=== PATIENT | female | born 1995 | race African-American/Black ===

== ENCOUNTER 2018-07-16 16:15 | Emergency (ER) | payer OTHER ==
[2018-07-16 16:27] VITALS: BP 102/49; PULSE 83; TEMP 98.6; BMI 23.7
--- NOTE | 2018-07-16 16:29 | PDOC ---
History of Present Illness - General History Source: Patient Exam Limitations: No Limitations <Melva Fisher - Last Filed: 07/16/18 17:10> - General History Source: Patient Exam Limitations: No Limitations - History of Present Illness Initial Comments: 07/16/18 16:41 The patient is a 22 year old female, with no significant PMH who presents to the emergency department complaining of white patches to the back of throat that began 2 days ago. The patient is endorsing mild pain when swallowing. Patient is also complaining of mild ear pain and states the "back of the neck hurts." Patient has not taken any medications for her symptoms. Denies any cough or recent illness. The patient denies chest pain, shortness of breath, headache and dizziness. Denies fever, chills, nausea, vomit, diarrhea and constipation. Denies dysuria, frequency, urgency and hematuria. Allergies: fruits Past surgical history: None reported. Social history: No reported alcohol, drug or cigarette use. <Maryjo Kay - Last Filed: 07/16/18 17:19> - General Chief Complaint: Sore Throat Stated Complaint: SORE THROAT Time Seen by Provider: 07/16/18 16:19 Past History - Past Medical History COPD: No Other medical history: DENIES - Suicide/Smoking/Psychosocial Hx Smoking History: Never smoked Have you smoked in the past 12 months: No Information on smoking cessation initiated: No Hx Alcohol Use: No Drug/Substance Use Hx: No Substance Use Type: None <Melva Fisher - Last Filed: 07/16/18 17:10> <Maryjo Kay - Last Filed: 07/16/18 17:19> - Past Medical History Allergies/Adverse Reactions: Allergies Allergy/AdvReac Type Severity Reaction Status Date / Time peanut Allergy Intermediate Hives Verified 07/16/18 16:16 FRUITS Allergy Intermediate Hives Uncoded 07/16/18 16:16 Home Medications: Ambulatory Orders NK [No Known Home Medication] 07/16/18 Review of Systems - Review of Systems Able to Perform ROS?: Yes Comments:: 07/16/18 16:39 ADULT ROS GENERAL/CONSTITUTIONAL: No fever or chills. No weakness. HEAD, EYES, EARS, NOSE AND THROAT: No change in vision. No ear pain or discharge. (+) White patch to the back of the throat. (+) sore throat. CARDIOVASCULAR: No chest pain or shortness of breath. RESPIRATORY: No cough, wheezing, or hemoptysis. GASTROINTESTINAL: No nausea, vomiting, diarrhea or constipation. GENITOURINARY: No dysuria, frequency, or change in urination. MUSCULOSKELETAL: No joint or muscle swelling or pain. No neck or back pain. SKIN: No rash NEUROLOGIC: No headache, vertigo, loss of consciousness, or change in strength/ sensation. ENDOCRINE: No increased thirst. No abnormal weight change. HEMATOLOGIC/LYMPHATIC: No anemia, easy bleeding, or history of blood clots. ALLERGIC/IMMUNOLOGIC: No hives or skin allergy. <Maryjo Kay - Last Filed: 07/16/18 17:19> *Physical Exam - Vital Signs Last Vital Signs Temp Pulse Resp BP Pulse Ox 98.6 F 83 16 102/49 L 100 07/16/18 16:15 07/16/18 16:15 07/16/18 16:15 07/16/18 16:15 07/16/18 16:15 <Melva Fisher - Last Filed: 07/16/18 17:10> - Vital Signs Last Vital Signs Temp Pulse Resp BP Pulse Ox 98.6 F 83 16 102/49 L 100 07/16/18 16:15 07/16/18 16:15 07/16/18 16:15 07/16/18 16:15 07/16/18 16:15 - Physical Exam Comments: 07/16/18 16:39 ADULT PE GENERAL: The patient is in no acute distress. HEAD: Normal with no signs of trauma. EYES: PERRLA, EOMI, sclera anicteric, conjunctiva clear. ENT: Ears normal, nares patent. Bilateral lateral tonsillar edema. 1-2 faint white patches on the posterior oropharynx. No exudates. Cervical lymphadenopathy. No drooling. No stridor. No vocal changes. Moist mucous membranes. NECK: Normal range of motion, supple without lymphadenopathy, JVD, or masses. LUNGS: Breath sounds equal, clear to auscultation bilaterally. No wheezes, and no crackles. HEART:Regular rate and rhythm, normal S1 and S2 without murmur, rub or gallop. ABDOMEN: Soft, nontender, normoactive bowel sounds. No guarding, no rebound. No masses palpable. EXTREMITIES: Normal range of motion, no edema. No clubbing or cyanosis. No erythema, or tenderness. NEUROLOGICAL: Cranial nerves II through XII grossly intact. Normal speech. No focal neurological deficits. MUSCULOSKELETAL: Back non-tender to palpation, no CVA tenderness SKIN: Warm, Dry, normal turgor, no rashes or lesions noted. <Maryjo Kay - Last Filed: 07/16/18 17:19> Medical Decision Making - Medical Decision Making 07/16/18 17:11 Miss Van is a 22-year-old female presented to emergency department with a complaint of sore throat. Patient has had these symptoms for the past 2 days. No fevers or chills. Patient has pain with swallowing, no vocal changes. No drooling. No ill contacts. No recent travel. No oral sexual contact with any new partners. She denies cough. She denies shortness of breath. Examination demonstrates bilateral tonsillar enlargement, no exudate. No drooling, no stridor, no vocal changes, no trismus Cervical lymphadenopathy. Lungs are clear Heart is regular No abdominal tenderness. Will do rapid strep Rapid strep negative Will send monospot however, I think this is most consistent with viral pharyngitis <Melva Fisher - Last Filed: 07/16/18 17:10> *DC/Admit/Observation/Transfer - Discharge Dispostion Decision to Admit order: No <Melva Fisher - Last Filed: 07/16/18 17:10> <Maryjo Kay - Last Filed: 07/16/18 17:19> Diagnosis at time of Disposition: Viral pharyngitis - Discharge Dispostion Disposition: HOME Condition at time of disposition: Stable - Patient Instructions Printed Discharge Instructions: DI for Pharyngitis/Tonsillopharyngitis -- Adult , DI for Viral Pharyngitis Additional Instructions: Mrs. Van, Thank you for coming to the emergency Department today. Please be sure to take Motrin 600 mg (3 tablets) or tylenol 1000mg (2 extra strength tablets) Please monitor yourself for drooling, voice changes, difficulty opening your mouth If you notice these things please come back to the ER Please follow up with your primary care physician within 1 week
== END 2018-07-16 17:27 | disposition home or self-care (01) ==
LOC: FER 16:15
DX: J02.8 Acute pharyngitis due to other specified organisms (principal); B97.89 Other viral agents as the cause of diseases classified elsewhere
CPT/HCPCS: 36415; 86308; 87070; 87430; 99281-25

== ENCOUNTER 2019-07-11 02:51 | Emergency (ER) | payer OTHER ==
[2019-07-11 03:07] VITALS: BP 116/75; PULSE 64; TEMP 98.3; BMI 23.9
--- NOTE | 2019-07-11 03:17 | PDOC ---
History of Present Illness - General Chief Complaint: Pain, Acute Stated Complaint: LLQ ABD PAIN Time Seen by Provider: 07/11/19 03:10 History Source: Patient Exam Limitations: No Limitations - History of Present Illness Initial Comments: 07/11/19 03:20 This is a 23-year-old female who comes in complaining of acute onset left lower quadrant abdominal pain approximately half hour prior to arrival. Patient is at the mid cycle of her menstrual cycle. Patient did not take anything for the pain. Patient said there is some associated nausea but no vomiting or diarrhea. Patient denies history of similar pain in the past. Patient is otherwise healthy. Patient is sexually active but denies any sexually transmitted disease history. Patient denies any vaginal discharge or odor. Allergies: as per nursing notes Past Medical History: none Social history: Lives with family. No smoking. No alcohol. No illicit drugs. Surgical history: None General: No fevers or chills, no weakness, no weight loss HEENT: No change in vision. No sore throat,. No ear pain CardioVascular: no chest discomfort. No shortness of breath Respiratory:No cough, or wheezing. Gastrointestinal: no nausea, vomiting, diarrhea or constipation, No rectal bleeding Genitourinary: No dysuria, hematuria, or frequency Musculoskeletal: No joint or muscle pain or swelling Neurologic: No headache, vertigo, dizziness or loss of consciousness Psychiatric: nor depression Skin: No rashes or easy bruising Endocrine: no increased thirst or abnormal weight change Allergic: no skin or latex allergy All other systems reviewed and normal Exam: General: Well-nourished well-developed individual, no acute distress HEENT: Throat: Normal, tonsils normal, no erythema or exudate Neck: Supple, no meningeal signs, no lymphadenopathy Eyes::Pupils equal reactive and round, extraocular motion intact Chest: Nontender to palpation Cardiac: S1-S2 normal, regular rate and rhythm, no murmurs rubs or gallops Respiratory: Lungs clear to auscultation bilateral Abdomen: Soft, nondistended, normal bowel sounds, there is no tenderness on palpation diffusely Pelvic exam: There is no vaginal discharge, there is no cervical motion tenderness, there is some left adnexal tenderness, there is no adnexal masses. Extremities: Warm, dry, no cyanosis, clubbing, or edema Skin: No rashes Neuro: Alert and oriented x3, CN II - XII intact, nonfocal exam with normal strength, normal sensation, normal reflexes, normal gait, Psych: Normal mood and affect 07/11/19 04:37 Patient's work-up was negative including ultrasound for any ovarian pathology. Patient however does have a urinary tract infection for which I will start her on Macrobid and discharge her patient eloped better I will have her follow-up with her primary care doctor Past History - Past Medical History Allergies/Adverse Reactions: Allergies Allergy/AdvReac Type Severity Reaction Status Date / Time peanut Allergy Intermediate Hives Verified 07/16/18 16:16 FRUITS Allergy Intermediate Hives Uncoded 07/16/18 16:16 Home Medications: Ambulatory Orders Nitrofurantoin Monohyd/M-Cryst [Macrobid -] 100 mg PO BID #14 capsule 07/11/19 Norgestimate-Ethinyl Estradiol [Tri-Sprintec Tablet] 1 each PO DAILY 07/11/19 COPD: No - Psycho Social/Smoking Cessation Hx Smoking History: Current every day smoker Have you smoked in the past 12 months: No Information on smoking cessation initiated: Yes Hx Alcohol Use: No Drug/Substance Use Hx: No Substance Use Type: None *Physical Exam - Vital Signs Last Vital Signs Temp Pulse Resp BP Pulse Ox 98.3 F 64 16 116/75 100 07/11/19 03:03 07/11/19 03:03 07/11/19 03:03 07/11/19 03:03 07/11/19 03:03 ED Treatment Course - LABORATORY CBC & Chemistry Diagram: 07/11/19 03:28 07/11/19 03:28 Discharge - Discharge Information Problems reviewed: Yes Clinical Impression/Diagnosis: Cystitis Condition: Stable Disposition: HOME - Admission No - Additional Discharge Information Prescriptions: Nitrofurantoin Monohyd/M-Cryst [Macrobid -] 100 mg PO BID #14 capsule - Follow up/Referral - Patient Discharge Instructions Additional Instructions: Your work-up was negative for everything but a urinary tract infection. I started you on an antibiotic for the urinary tract infection. Stay well-hydrated and drink plenty of fluids For the pain you can also take Aleve 2 tablets twice a day with food do not take on empty stomach For the urinary tract infection take Macrobid 1 tablet twice a day for 7 days Return to the emergency department immediately with ANY new, persistent or worsening symptoms. Continue any medications as previously prescribed by your physician. You should follow up with your primary doctor as soon as possible regarding today's emergency department visit. . Please make sure your doctor reviews the results of your emergency evaluation. Thank you for coming to the Emergency Department today for your care. It was a pleasure to see you today. Please note that your evaluation is INCOMPLETE until you follow-up with your doctor. - Post Discharge Activity
[2019-07-11] MEDS ORDERED: KETOROLAC TROMETHAMINE 30 MG/1 ML VIAL IVPUSH ONE (03:18)
[2019-07-11] MEDS ORDERED: SODIUM CHLORIDE 1,000 ML IV ONE (03:18)
[2019-07-11] MEDS ORDERED: KETOROLAC TROMETHAMINE 30 MG/1 ML VIAL ONE (03:28)
[2019-07-11 04:19] LABS: BASO % 0.8 % (0-2.0); EOS % 4.5 % (0-4.5); HEMATOCRIT 38.3 % (32.4-45.2); HEMOGLOBIN 13.3 GM/dL (10.7-15.3); LYMPH % 58.9 % (8-40); MCH 31.7 pg (25.7-33.7); MCHC 34.8 g/dl (32.0-36.0); MEAN CELL VOLUME 91.1 fl (80-96); MEAN PLT VOLUME 8.8 fl (7.5-11.1); MONO % 7.6 % (3.8-10.2); NEUT % 28.2 % (42.8-82.8); PLATELET COUNT 245 K/MM3 (134-434); RBC 4.21 M/mm3 (3.60-5.2); RDW 13.4 % (11.6-15.6)
[2019-07-11 04:27] LABS: EPI CELLS 3.5 /HPF (0-5/HPF); HYALINE CASTS 8 /lpf (0-8); PH,URINE 6.5 (5.0-8.0); URINE APPEARANCE CLEAR; URINE BACTERIA 7883.9 /hpf (NEGATIVE); URINE BILIRUBIN NEGATIVE (NEGATIVE); URINE COLOR YELLOW; URINE GLUCOSE (UA) NEGATIVE (NEGATIVE); URINE KETONE NEGATIVE (NEGATIVE); URINE LEUK ESTERASE 1+ (NEGATIVE); URINE NITRITE POSITIVE (NEGATIVE); URINE PROTEIN NEGATIVE (NEGATIVE); URINE RBC 1 /hpf (0-4); URINE WBC 10 /hpf (0-5)
[2019-07-11 04:39] LABS: BILIRUBIN,TOTAL 0.3 mg/dL (0.2-1); BLOOD UREA NITROGEN 12.9 mg/dL (7-18); CREATININE 0.9 mg/dL (0.55-1.3); POTASSIUM 3.9 mmol/L (3.5-5.1); TOT PROT 7.5 g/dl (6.4-8.2)
[2019-07-11] MEDS ORDERED: NITROFURANTOIN MACROCRYSTAL 50 MG CAPSULE (FP) ONE (04:40)
[2019-07-11] MEDS ORDERED: NITROFURANTOIN MACROCRYSTAL 50 MG CAPSULE (FP) PO SCH (04:45)
== END 2019-07-11 04:49 | disposition home or self-care (01) ==
LOC: FER 02:51
PROC: 3E0333Z Introduction of Anti-inflammatory into Peripheral Vein, Percutaneous Approach (ICD-10-PCS; principal; 2019-07-11)
DX: N30.90 Cystitis, unspecified without hematuria (principal); Z91.010 Allergy to peanuts; Z91.018 Allergy to other foods; F17.210 Nicotine dependence, cigarettes, uncomplicated
CPT/HCPCS: 36415; 76830-TC; 80053; 81003; 84703; 85025; 87086; 87186; 99283-25; J7030

== ENCOUNTER 2019-07-19 15:40 | Emergency (ER) | payer OTHER ==
--- NOTE | 2019-07-19 15:53 | PDOC ---
History of Present Illness - General Chief Complaint: Vaginal Sxs Stated Complaint: VAGINAL PAIN Time Seen by Provider: 07/19/19 15:47 - History of Present Illness Initial Comments: 07/19/19 16:44 23yo female with no pmhx who is currently finishing her nitrofurantoin for a uti presents for eval of vaginal swelling, pain, and white clumpy discharge. Pt states still with cloudy urine. Pt denies f/c. States she did not take her nitrofurantoin today as she was concerned it was worsening her symptoms. Pt denies abd pain. States nausea, no vomiting or diarrhea. States she feels her vagina is swollen. No hx of sti/std- but requests testing today. Pt states she is on control and isn't due for her menstrual for 2 weeks, but today is having vaginal bleeding. Pt states she used monistat yesterday and the cream last night and feels the swelling worsened. Pt denies all other complaints. Pmhx: denies Pshx: denies All: peanuts Meds: nitrofurantoin Past History - Past Medical History Allergies/Adverse Reactions: Allergies Allergy/AdvReac Type Severity Reaction Status Date / Time peanut Allergy Intermediate Hives Verified 07/19/19 15:42 FRUITS Allergy Intermediate Hives Uncoded 07/19/19 15:42 Home Medications: Ambulatory Orders Nitrofurantoin Monohyd/M-Cryst [Macrobid -] 100 mg PO BID #14 capsule 07/11/19 Norgestimate-Ethinyl Estradiol [Tri-Sprintec Tablet] 1 each PO DAILY 07/11/19 Cephalexin Monohydrate [Keflex -] 500 mg PO BID #13 capsule 07/19/19 Fluconazole 150 mg PO ONCE #1 tablet 07/19/19 COPD: No - Reproductive History Is Patient Now?: No (#): 0 Para: 0 Therapeutic (s) & number: No - Psycho Social/Smoking Cessation Hx Smoking History: Current every day smoker Have you smoked in the past 12 months: No Information on smoking cessation initiated: No Hx Alcohol Use: No Drug/Substance Use Hx: No Substance Use Type: None Review of Systems - Review of Systems Able to Perform ROS?: Yes Is the patient limited Qatari proficient: No Constitutional: No: Chills, Fever HEENTM: No: Nose Pain, Nose Congestion, Throat Pain Respiratory: No: Cough, Shortness of Breath Cardiac (ROS): No: Chest Pain ABD/GI: Yes: Nausea. No: Diarrhea, Vomiting, Abdominal cramping : Yes: Burning, Other (vaginal discharge and bleeding). No: Dysuria Musculoskeletal: No: Back Pain Integumentary: No: Bruising Neurological: No: Headache, Numbness, Ataxia All Other Systems: Reviewed and Negative *Physical Exam - Vital Signs Last Vital Signs Temp Pulse Resp BP Pulse Ox 98.5 F 92 H 112/74 99 07/19/19 15:41 07/19/19 15:41 07/19/19 15:41 07/19/19 15:41 - Physical Exam General Appearance: Yes: Nourished, Appropriately Dressed. No: Apparent Distress HEENT: positive: Normal Voice Neck: positive: Supple Respiratory/Chest: positive: Lungs Clear, Normal Breath Sounds. negative: Respiratory Distress Cardiovascular: positive: Regular Rhythm, Regular Rate, S1, S2 Female Pelvic Exam: positive: cervical os closed, vaginal bleeding, other ( swollen vulva, cheesy white discharge and scant amount of dark blood in the vaginal vault, no adnexal ttp, no cmt, vaginal lining ttp and erythematous) Gastrointestinal/Abdominal: positive: Soft. negative: Guarding, Rebound, Tenderness Musculoskeletal: positive: Normal Inspection Extremity: positive: Normal Capillary Refill, Normal Inspection, Normal Range of Motion, Other (ambulatory with a steady gait). negative: Calf Tenderness Integumentary: positive: Normal Color, Dry, Warm Neurologic: positive: Fully Oriented, Alert, Normal Mood/Affect, Motor Strength 5/5 Medical Decision Making - Medical Decision Making 07/19/19 16:50 a/p: 23yo female with recent uti now with vulva swelling and cheesy white discharge -suspect vulvovaginitis and candidiasis -will repeat ua and ucx -last culture napoles sensitive ecoli -will send urine for gc/chl - though no cmt on exam -will repeat upreg - irreg bleeding on control and on abx -if upreg neg will treat with fluconazole 07/19/19 17:16 pt still with uti and yeast will start keflex and fluconazole 07/19/19 17:21 discussed labs with the patient will dc with keflex and a repeat dose of fluconazaole on sunday if symptoms continue discussed dc nitrofurantoin pt is seeing [facility]FFIC [facility] - [facility] on sunday - discussed keeping this appointment. Discharge - Discharge Information Problems reviewed: Yes Clinical Impression/Diagnosis: UTI (urinary tract infection), Vulvovaginal candidiasis Condition: Stable Disposition: HOME - Admission No - Additional Discharge Information Prescriptions: Cephalexin Monohydrate [Keflex -] 500 mg PO BID #13 capsule Fluconazole 150 mg PO ONCE #1 tablet - Follow up/Referral Referrals: Lluvia Ward MD [Staff Physician] - - Patient Discharge Instructions Patient Printed Discharge Instructions: DI for Vaginal Yeast Infection, DI for Urinary Tract Infection (UTI) Additional Instructions: Please take all antibiotics as prescribed. Please throw out your nitrofurantoin. Please repeat your fluconazole dose on sunday if your symptoms continue. Please do not drink while taking fluconazole. Please return to the ED with any further concerns or complaints. Please keep your appointment with the TRAFFIC ANALYST for sunday as scheduled. - Post Discharge Activity
[2019-07-19 16:07] VITALS: BP 112/74; PULSE 92; TEMP 98.5; BMI 23.9
[2019-07-19 17:02] LABS: EPITHELIAL CELLS MANY /hpf
[2019-07-19 17:03] LABS: AMORP URATES 1+ /hpf (NONE SEEN)
[2019-07-19] MEDS ORDERED: CEPHALEXIN MONOHYDRATE 500 MG CAPSULE (UD) PO ONE (17:14)
[2019-07-19] MEDS ORDERED: FLUCONAZOLE 150 MG TABLET PO ONE ×2 (17:14→17:16)
[2019-07-19] MEDS ORDERED: CEPHALEXIN MONOHYDRATE 500 MG CAPSULE (UD) ONE (17:16)
== END 2019-07-19 17:36 | disposition home or self-care (01) ==
LOC: FER 15:40
DX: B37.3 Candidiasis of vulva and vagina (principal); N39.0 Urinary tract infection, site not specified; Z91.010 Allergy to peanuts; Z91.018 Allergy to other foods; F17.210 Nicotine dependence, cigarettes, uncomplicated
CPT/HCPCS: 36415; 81003; 81015; 84703; 87070; 87077; 87086; 87186; 87205; 87491; 87591; 99282-25

== ENCOUNTER 2019-10-14 18:40 | Emergency (ER) | payer OTHER ==
[2019-10-14 18:46] VITALS: BP 101/47; PULSE 64; TEMP 98; BMI 23.9
--- NOTE | 2019-10-15 01:05 | PDOC ---
Documentation entered by Mariela Billings SCRIBE, acting as scribe for Rosemary Toledo MD. Rosemary Toledo MD: This documentation has been prepared by the spibeManuelito Lincy, SCRIBE, under my direction and personally reviewed by me in its entirety. I confirm that the documentation accurately reflects all work, treatment, procedures, and medical decision making performed by me. History of Present Illness - General Chief Complaint: Urinary Problem Stated Complaint: PELVIC PAIN Time Seen by Provider: 10/14/19 19:29 History Source: Patient Exam Limitations: No Limitations - History of Present Illness Initial Comments: 10/14/19 20:31 The patient is a 24-year-old female with no reported significant past medical history who presents to the emergency department with suprapubic pain. The patient was seen at the ER on 07/11/19 for suprapubic pain. The patients UA was significant for a UTI, and the culture grew ecoli. The patient was discharged home with Macrobid. The patient reports being compliant with the medication, and several days after, she had an onset of vaginal swelling and discharge. The patient was seen in the ER on 07/19/19 for the vaginal symptom. The patients UA at that time was significant for a UTI, and culture was significant for Group B strep yeast infection. The patient was given a dose of fluconazole and discharged home with Keflex. The patient reports being compliant with the antibiotics however, the patient reports the pain didnt resolve. The patient reports the pain is intermittent, sharp in quality, lasting for 5 minutes before self-resolving, varies in severity. The patient states she took a home UTI test today, which was positive for UTI and decided to be evaluated. The patient reports associated symptoms of urinary urgency, frequency, and intermittent episodes of hot flashes that have been ongoing for a month. Denies dysuria, hematuria, back pain, vaginal discharge, measurable fever, diarrhea, constipation. Denies the daily use of medications. LMP: Finished 10/13/2019, regular. Social history: Denies the use of tobacco, alcohol or recreational drugs. ANIMATED [employer] [facility]: [facility] Past History - Past Medical History Allergies/Adverse Reactions: Allergies Allergy/AdvReac Type Severity Reaction Status Date / Time peanut Allergy Intermediate Hives Verified 10/14/19 18:42 FRUITS Allergy Intermediate Hives Uncoded 07/19/19 15:42 Home Medications: Ambulatory Orders NK [No Known Home Medication] 10/14/19 COPD: No Disorders: Yes (UTI) - Reproductive History (#): 0 Para: 0 Therapeutic (s) & number: No - Psycho Social/Smoking Cessation Hx Smoking History: Never smoked Have you smoked in the past 12 months: No Hx Alcohol Use: No Drug/Substance Use Hx: No Substance Use Type: None Review of Systems - Review of Systems Able to Perform ROS?: Yes Comments:: 10/14/19 20:32 CONSTITUTIONAL: +hot flashes. Pt denies Fever, Chills, weakness. HEENT: denies vision changes, sore throat RESPIRATORY: Denies cough, sob, hemoptysis CARDIAC: denies chest pain, palpitations, lightheadedness, leg swelling ABD/GI: denies abd pain, nausea, vomiting, blood per rectum, melena, diarrhea : +suprapubic pain, urinary frequency, urgency. denies dysuria, vaginal discharge. MSK: denies back pain, joint swelling SKIN: denies bruising, erythema, rash NEUROLOGICAL: denies headache, numbness, focal weakness, tingling, ataxia, weakness HEMATOLOGICAL: denies anemia, easy bruising, easy bleeding *Physical Exam - Vital Signs Last Vital Signs Temp Pulse Resp BP Pulse Ox 98 F 64 18 101/47 L 98 10/14/19 18:41 10/14/19 18:41 10/14/19 18:41 10/14/19 18:41 10/14/19 18:41 - Physical Exam 10/14/19 20:33 GENERAL: The patient is awake, alert, and fully oriented, in no acute distress. HEAD: Normal with no signs of trauma. EYES: Pupils equal, round and reactive to light, extraocular movements intact, sclera anicteric, conjunctiva clear with no pallor. ENT: Ears normal, nares patent, oropharynx clear without exudates. Moist mucous membranes. NECK: Normal range of motion, supple without lymphadenopathy, JVD, or masses. LUNGS: Breath sounds equal, clear to auscultation bilaterally. No wheeze/ crackles. HEART: Regular rate and rhythm, normal S1 and S2 without murmur or rub. ABDOMEN: Soft/nontender/nondistended. BS wnl. No guarding or rebound. : normal external genitalia, normal vaginal discharge, no cervical motion tenderness. EXTREMITIES: Normal range of motion, no edema. No clubbing or cyanosis. No cords, erythema, or tenderness. NEUROLOGICAL: Cranial nerves II through XII grossly intact. Normal speech, normal gait. PSYCH: Normal mood, normal affect. SKIN: Warm, Dry, normal turgor, no rashes or lesions noted. ED Treatment Course - ADDITIONAL ORDERS Additional order review: Laboratory Results 10/14/19 10/14/19 19:03 19:03 Urine Color Yellow Urine Appearance Clear Urine pH 7.0 Urine Protein Negative Urine Glucose (UA) Negative Urine Ketones Trace Urine Blood Negative Urine Nitrite Negative Urine Bilirubin Negative Urine Urobilinogen 0.2 Ur Leukocyte Esterase Negative Urine HCG, Qual Negative ED Progress Note - Progress Note Progress Note: As noted above, this 24-year-old woman with a history of UTI in July, but otherwise healthy presents with several day history of intermittent suprapubic pain and urinary frequency. No other symptoms reported. Exam as noted. Patient had no suprapubic tenderness; pelvic exam was normal and sample for GC/ chlamydia cervical swab obtained. Urinalysis is normal. PGU negative Results discussed with the patient. She understands that the results of the chlamydia/GC swab will not be available for 5 days. She understands that she will be treated with antibiotics (will be called into her pharmacy) if swab is positive for chlamydia or other STI. She should drink plenty of water and plan follow-up with her amr physician. She should return to the emergency room if she has worsening pain, develops dysuria/hematuria/fever. Discharge - Discharge Information Problems reviewed: Yes Clinical Impression/Diagnosis: Suprapubic discomfort Condition: Stable Disposition: HOME - Follow up/Referral - Patient Discharge Instructions Patient Printed Discharge Instructions: DI for Pelvic Pain Additional Instructions: Drink plenty of water We will call you if test is positive Antibiotic prescription will be called into your pharmacy if test is positive Follow-up with your amr physician within 1 week, especially if you have persistent pain Return to ER if you have severe pain, fever or vomiting - Post Discharge Activity
== END 2019-10-14 20:41 | disposition home or self-care (01) ==
LOC: FER 18:40
DX: R10.13 Epigastric pain (principal); Z91.010 Allergy to peanuts; Z91.018 Allergy to other foods
CPT/HCPCS: 36415; 81003; 84703; 87491; 87591; 99282-25